=== PATIENT | male | born 1990 | race Caucasian/White ===

== ENCOUNTER 2016-10-16 14:36 | Emergency (ER) | payer SELFPAY ==
[~2016-10-16] VITALS: Ht 180.3 cm; Wt 86.2 kg
[2016-10-16 16:25] VITALS: BP 129/85
== END 2016-10-16 16:30 | disposition home or self-care (01) ==
LOC: EME 14:36
DX: F41.9 Anxiety disorder, unspecified (principal); F12.20 Cannabis dependence, uncomplicated; F17.200 Nicotine dependence, unspecified, uncomplicated
CPT/HCPCS: 90839; 99281; 99285